=== PATIENT | male | born 1950 | race Caucasian/White ===

== ENCOUNTER 2022-04-08 13:28 | Outpatient (CLI) | payer MEDICARE, SELFPAY ==
[2022-04-08 13:45] LABS: Basophils Absolute Auto 0.04 K/uL (0.00-0.30); Basophils Percent Auto 0.5 % (0.0-3.0); Eosinophils Absolute Auto 0.08 K/uL (0.00-0.50); Eosinophils Percent Auto 0.9 % (0.0-7.0); Hematocrit 42.5 % (37.0-53.0); Hemoglobin* 14.3 gm/dL (13.5-17.5); Lymphocytes Absolute Auto 2.42 K/uL (0.90-2.90); Lymphocytes Percent Auto 27.6 % (20-44); Mean Corpuscular HGB Conc 34 gm/dL (32-36); Mean Corpuscular Hemoglobin 31 pg (26-34); Mean Corpuscular Volume 93 fL (80-100); Neutrophils Absolute Auto 5.08 K/uL (1.7-7.0); Platelet Count* 239 K/uL (140-440); Red Blood Count 4.56 m/uL (4.30-5.90); White Blood Count* 8.76 K/uL (4.50-11.00)
[2022-04-08 13:52] LABS: Slide Review Reflex No
[2022-04-08 21:28] LABS: Chloride* 103 mmol/L (96-114); Estimated Glomerular Filt Rate 80 ml/min; Potassium* 4.2 mmol/L (3.6-5.1); Sodium* 137 mmol/L (135-149)
[2022-04-08 21:29] LABS: Blood Urea Nitrogen* 24 mg/dL (7-30); Calcium* 9.6 mg/dL (8.4-10.6); Carbon Dioxide* 28 mmol/L (20-32); Glucose* 81 mg/dL (60-115)
== END 2022-04-08 13:29 | disposition home or self-care (01) ==
LOC: LKVREF 13:29
PROVIDERS: PCP Family Medicine; Visit Provider Family Medicine
DX: I10 Essential (primary) hypertension (principal); Z01.818 Encounter for other preprocedural examination
CPT/HCPCS: 80048; 85025

== ENCOUNTER 2022-04-18 08:08 | Day surgery (SDC) | payer MEDICARE, SELFPAY ==
[2022-04-18] VITALS (12 sets, daily range): BP systolic 114–159; BP diastolic 72–90; PULSE 62–83; RESP 12–16; TEMP 36.3–37; O2SAT 96–98; BMI 29.3
[2022-04-18] MEDS: LACTATED RINGERS 1000 ML 1,000 ML 100 ML IV ×2 (08:30→11:01)
[2022-04-18] MEDS: SODIUM CHLORIDE 0.9 % (FLUSH) 10 ML SYRINGE IVF (08:58)
[2022-04-18] MEDS: CEFAZOLIN 2 GM INJ IVP (10:15)
--- NOTE | 2022-04-18 10:47 | SUR.OPER ---
PATIENT QUESTIONS ANSWERED SATISFACTORILY PREOPERATIVELY. ? PATIENT BROUGHT TO OR #4 PER CART. ? Patient positioned supine on OR #4 bed. The perioperative team tucked arms bilaterally at the patient's sides in a neutral position with the drawsheet.? Final approval of positioning by surgeon.?
--- NOTE | 2022-04-18 11:23 | W.ANESCHARGE ---
Anesthesia Charges Start Date/Time Anesthesia Start Date: 04/18/22 Anesthesia Start Time: 10:06 Stop Date/Time Anesthesia Stop Date: 04/18/22 Anesthesia Stop Time: 11:17 Summary Emergency: No
--- NOTE | 2022-04-18 11:28 | PM.GSPRC ---
Operative Note Date of procedure: 04/18/22 Type of Procedure: Laparoscopic right inguinal hernia repair with mesh Procedure Description: After discussing the risks and benefits of the procedure, the patient signed informed consent.? The operative site was marked and the patient was brought to the operating room and placed on the operating table in supine position.? Care was taken to pad the patient's pressure points.?? The patient was then Intubated by anesthesia.?? The operative site was then prepped and draped in the usual sterile fashion.? A time-out was then performed. ? A curvilinear incision was made below the umbilicus. Dissection was carried down to subcutaneous tissue until the anterior rectus fascia was encountered. This was incised off the midline. The rectus muscle fibers were then retracted exposing the posterior fascia. A port with a dissecting balloon was then introduced into the pre-preperitoneal space. This was inflated under direct vision. The balloon was deflated, removed, and a 10 mm working port was placed. The space was insuflated and a 10 mm 30-degree scope was then advanced into the space. Two 5 mm ports were placed in the midline under direct vision. A small branch of the epigastric vessel was bleeding. This was clipped. Dissection began on the right side. Chang's ligament and the pubic bone was exposed medially. Following this, dissection was carried out laterally. a moderate size direct defect was noted and containing fat. This was reduced. A small lipoma was noted which was reduced from the internal ring. A small hernia sac was then reduced from the cord structures using a combination of sharp and blunt dissection. Once the sac was completely reduced, a piece of Bard 3DMax mesh for the appropriate side was placed into the abdomen. This was positioned with the marker pointed medially. A Tacker was used to attach the mesh medially at Chang's ligament and 1 tack laterally with care to avoid the epigastric vessels and stay above the inguinal ligament. Once this was completed the sac was placed on top of the mesh and the preperitoneal space desufflated under direct vision. The ports were removed. There may have been a small peritoneal tear because there appeared to be moderate amount of pneumoperitoneum. To evacuate this I made a small incision in the posterior rectus fascia and incised the peritoneum. The pneumoperitoneum was evacuated. The hole was then closed with Vicryl. Anterior rectus fascia was then also closed with 0 Vicryl. The skin incisions were closed with absorbable subcuticular suture. Sterile dressings were then applied. The scrotum was examined to ensure that both testicles were down. Instrument sponge and needle counts were correct at the end of the case. ? The patient was then woken and transported to the recovery area in stable condition. ? The patient tolerated the procedure well. Findings: direct and indirect inguinal hernia. Anesthesia: GETA Surgeon: Lee Ann Onofre MD Estimated blood loss (mL): 5 Condition: stable Disposition: PACU
--- NOTE | 2022-04-18 12:24 | W.ANESCHARGE ---
Anesthesia Charges Start Date/Time Anesthesia Start Date: 04/18/22 Anesthesia Start Time: 10:06 Stop Date/Time Anesthesia Stop Date: 04/18/22 Anesthesia Stop Time: 11:17 Summary Emergency: No Extremes of Age: Over 70-CPT [id number]
[2022-04-18] MEDS: HYDROCODONE-ACETAMIN 5-325 MG 1 TAB PO (12:42)
== END 2022-04-18 13:21 | disposition home or self-care (01) ==
PROVIDERS: PCP Family Medicine; Visit Provider Surgery
PROC: (CPT 49650; principal; 2022-04-18 09:25)
DX: K40.90 Unilateral inguinal hernia, without obstruction or gangrene, not specified as recurrent (principal)
CPT/HCPCS: 49650; 00830; 00860; 99100; A9270; C1781; J0330; J0690; J1885; J2405; J2704; J2710; J3010; J7120

== ENCOUNTER 2022-04-20 13:57 | Emergency (ER) | payer MEDICARE, SELFPAY ==
[2022-04-20 14:15] VITALS: BP 150/90; PULSE 94; RESP 18; TEMP 36.5; O2SAT 96; BMI 28.8
== END 2022-04-20 15:17 | disposition left against medical advice (07) ==
PROVIDERS: Emergency Provider Emergency Medicine; PCP Family Medicine
DX: Z53.21 Procedure and treatment not carried out due to patient leaving prior to being seen by health care provider (principal)
CPT/HCPCS: 99281

== ENCOUNTER 2023-01-09 09:04 | Outpatient (CLI) | payer MEDICARE, SELFPAY | END 2023-01-09 09:05 | disposition home or self-care (01) | LOC: NFLDREF 21:55 | PROVIDERS: PCP Family Medicine; Referring Provider Family Medicine; Visit Provider Family Medicine | DX: Z00.00 Encounter for general adult medical examination without abnormal findings (principal); E78.5 Hyperlipidemia, unspecified; I10 Essential (primary) hypertension; Z12.5 Encounter for screening for malignant neoplasm of prostate | CPT/HCPCS: 80053; 80076; 84153 ==

== ENCOUNTER 2023-01-20 10:18 | Outpatient (CLI) | payer MEDICARE, SELFPAY | END 2023-01-20 10:19 | disposition home or self-care (01) | LOC: LKVREF 10:18 | PROVIDERS: PCP Family Medicine; Visit Provider Family Medicine | DX: Z01.818 Encounter for other preprocedural examination (principal); E78.5 Hyperlipidemia, unspecified | CPT/HCPCS: 80061 ==

== ENCOUNTER 2023-01-24 14:44 | Outpatient (CLI) | payer MEDICARE, SELFPAY ==
--- NOTE | 2023-01-24 15:00 | CRLHL7_ITS ---
For Patients: As a result of the Century Cures Act, medical imaging exams and procedure reports are released immediately into your electronic medical record. You may view this report before your referring provider. If you have questions, please contact your health care provider. CLINICAL HISTORY: RT CAROTID BRUIT TECHNIQUE: The carotid circulations and the vertebral arteries in the neck were examined with guadalupe-scale ultrasound, color-flow and Doppler spectral analysis. Degrees of stenosis were determined using SRU 2002 Consensus Panel Criteria. FINDINGS: Sonographic images demonstrate mild atherosclerotic plaque formation without suspicious soft tissue mass. There was antegrade blood flow demonstrated within the vertebral arteries and the subclavian arteries demonstrated a normal triphasic waveform. The spectral Doppler tracings of the common carotid, internal and external carotid arteries demonstrate no abnormal turbulence or spectral broadening. There was no significant elevation of peak systolic blood flow which would indicate a hemodynamically-significant stenosis by SRU criteria. The ICA/CCA peak systolic velocity ratio measures 1.2 on the right and 1.0 on the left. IMPRESSION: Less than 50 percent stenosis of the internal carotid arteries bilaterally. Dictated by Rios Clayton MD @ 01/24/2023 5:59:33 PM (Electronically Signed)
== END 2023-01-24 14:45 | disposition home or self-care (01) ==
LOC: US 14:45
PROVIDERS: PCP Family Medicine; Visit Provider Family Medicine
DX: R09.89 Other specified symptoms and signs involving the circulatory and respiratory systems (principal); I65.23 Occlusion and stenosis of bilateral carotid arteries
CPT/HCPCS: 93880

== ENCOUNTER 2023-07-23 09:17 | Outpatient (CLI) | payer MEDICARE, SELFPAY | END 2023-07-23 09:18 | disposition home or self-care (01) | LOC: NFLDREF 07-25 12:02 | PROVIDERS: PCP Family Medicine; Referring Provider Family Medicine; Visit Provider Family Medicine | DX: E78.5 Hyperlipidemia, unspecified (principal) | CPT/HCPCS: 80061; 84460 ==

== ENCOUNTER 2024-03-04 10:34 | Outpatient (CLI) | payer MEDICARE, SELFPAY | END 2024-03-04 10:35 | disposition home or self-care (01) | PROVIDERS: PCP Family Medicine; Visit Provider Family Medicine | DX: E78.5 Hyperlipidemia, unspecified (principal); Z12.5 Encounter for screening for malignant neoplasm of prostate; R41.3 Other amnesia | CPT/HCPCS: 80053; 80061; 82607; 84443; G0103 ==

== ENCOUNTER 2025-03-08 11:24 | Outpatient (CLI) | payer MEDICARE, SELFPAY | END 2025-03-08 11:25 | disposition home or self-care (01) | PROVIDERS: PCP Family Medicine; Visit Provider Family Medicine | DX: E78.5 Hyperlipidemia, unspecified (principal); I10 Essential (primary) hypertension; N40.0 Benign prostatic hyperplasia without lower urinary tract symptoms; R53.83 Other fatigue; R41.3 Other amnesia; Z12.5 Encounter for screening for malignant neoplasm of prostate | CPT/HCPCS: 80053; 80061; 82607; 84443; G0103 ==